=== PATIENT | female | born 1950 | race Caucasian/White ===

== ENCOUNTER 2017-11-29 16:55 | Emergency (ER) | payer OTHER ==
--- NOTE | 2017-11-29 18:50 | RAD REPORT ---
EXAM DESCRIPTION: RAD - Chest Pa And Lat (2 Views) - 11/29/2017 6:42 pm CLINICAL HISTORY: cough, chills Chest pain. COMPARISON: CHEST PA AND LAT 2 VIEW dated 09/03/2013 FINDINGS: The lungs are clear. The heart is normal in size. No displaced fractures. IMPRESSION: No acute or concerning finding suspected.
--- NOTE | 2017-11-29 18:56 | EDPHYS ---
Physician Documentation [facility] Name: Renae Ratliff Age: 67 yrs Sex: Female : 1950 Arrival Date: 11/29/2017 Time: 16:57 Bed 24 Private MD: Bob Cormier ED Physician Hesham Delgado HPI: 11/29 18:22 This 67 yrs old Female presents to ER via Ambulatory with complaints of jmm Congestion. 18:22 The patient or guardian reports cough. Onset: The symptoms/episode began/occurred jmm gradually, 6 day(s) ago. Associated signs and symptoms: Pertinent positives: sinus congestion. This is a 67 year old female that presents t the ED with cough, congestion, sinus congestion beginning approx 6 days ago. Patient also complains of chills and sob. . Historical: - Allergies: 17:05 No Known Allergies; aj - Home Meds: 17:05 pantoprazole oral oral [Active]; unknown cholesterol medication [Active]; aj - PMHx: 17:05 Hyperlipidemia; aj - PSHx: 17:05 Esophageal; aj - Immunization history:: Adult Immunizations up to date. - Social history:: Smoking status: Patient/guardian denies using tobacco. - Ebola Screening: : Patient negative for fever greater than or equal to 101.5 degrees Fahrenheit, and additional compatible Ebola Virus Disease symptoms Patient denies exposure to infectious person Patient denies travel to an Ebola-affected area in the 21 days before illness onset No symptoms or risks identified at this time. ROS: 18:22 Cardiovascular: Negative for chest pain, palpitations, and edema. jmm 18:22 Constitutional: Positive for body aches, chills. 18:22 ENT: Positive for sinus congestion. 18:22 Respiratory: Positive for cough. 18:22 All other systems are negative. Exam: 18:22 Head/Face: atraumatic. jmm 18:22 Chest/axilla: Normal chest wall appearance and motion. Cardiovascular: Regular rate and rhythm. No edema appreciated Respiratory: Normal respirations, no respiratory distress appreciated 18:22 Constitutional: The patient appears in no acute distress, alert, awake. 18:22 ENT: TM's: are normal, Posterior pharynx: is normal. 18:22 Neck: ROM/movement: is normal, is supple. 18:22 Cardiovascular: Rate: normal, Rhythm: regular, Pulses: no pulse deficits are appreciated. 18:22 Respiratory: the patient does not display signs of respiratory distress, Respirations: normal, Breath sounds: are clear throughout. 18:22 Abdomen/GI: Inspection: abdomen appears normal. 18:22 Back: ROM is normal. 18:22 Musculoskeletal/extremity: ROM: intact in all extremities. 18:22 Skin: Appearance: Color: normal in color. 18:22 Neuro: Orientation: is normal, Mentation: is normal, Memory: is normal, Gait: is steady. 18:22 Psych: Behavior/mood is pleasant, cooperative. Vital Signs: 17:05 BP 149 / 81; Pulse 89; Resp 17; Temp 98.1; Pulse Ox 98% on R/A; Weight 57.15 kg; Height aj 5 ft. 4 in. (162.56 cm); 19:08 BP 136 / 84; Pulse 76; Resp 18; Temp 98.6(O); Pulse Ox 100% on R/A; Pain 0/10; ed1 17:05 Body Mass Index 21.63 (57.15 kg, 162.56 cm) MDM: 18:16 Patient medically screened. [facility] 18:52 Data reviewed: vital signs, nurses notes. [facility] 18:54 Counseling: I had a detailed discussion with the patient and/or guardian regarding: the [facility] historical points, exam findings, and any diagnostic results supporting the discharge/admit diagnosis, the need for outpatient follow up, to return to the emergency department if symptoms worsen or persist or if there are any questions or concerns that arise at home. 11/29 17:06 Order name: Flu; Complete Time: 18:19 aj 11/29 18:22 Order name: Chest Pa And Lat (2 Views) XRAY; Complete Time: 18:51 [facility] Administered Medications: No medications were administered Disposition: 11/30 13:19 Co-signature as Attending Physician, eHsham Delgado MD I agree with the assessment and kdr plan of care. Disposition: 11/29/17 18:55 Discharged to Home. Impression: Acute bronchitis. - Condition is Stable. - Discharge Instructions: Acute Bronchitis, Adult. - Prescriptions for Prednisone 20 mg Oral Tablet - take 3 tablet by ORAL route once daily for 5 days; 15 tablet. Zithromax Z- Michael 250 mg Oral Tablet - take 1 tablet by ORAL route as directed for 5 days Day 1 - take two (2) tablets one time. Day 2, 3, 4 , 5 take one (1) tablet once daily.; 6 tablet. Albuterol Sulfate 90 mcg/actuation - inhale 1-2 puff by INHALATION route every 4-6 hours; 1 Inhaler. - Medication Reconciliation Form, Thank You Letter, Antibiotic Education, Prescription Opioid Use form. - Follow up: Bob Cormier MD; When: 2 - 3 days; Reason: Recheck today's complaints, Continuance of care, Re-evaluation by your physician. Signatures: Dispatcher [employer] EDMS Kate Smith RN RN aj Rittger, Kevin, MD MD kdr Mickail, Joel, PA PA jmm Riggs, Erika, UMBRELLA TIPPER HAND UMBRELLA TIPPER HAND ed1 Corrections: (The following items were deleted from the chart) 11/29 19:09 18:55 11/29/2017 18:55 Discharged to Home. Impression: Acute bronchitis. Condition is ed1 Stable. Forms are Medication Reconciliation Form, Thank You Letter, Antibiotic Education, Prescription Opioid Use. Follow up: Bob Cormier; When: 2 - 3 days; Reason: Recheck today's complaints, Continuance of care, Re-evaluation by your physician. steve
--- NOTE | 2017-11-29 18:56 | ER ---
Nurse's Notes [facility] Name: Renae Ratliff Age: 67 yrs Sex: Female : 1950 Arrival Date: 11/29/2017 Time: 16:57 Bed 24 Private MD: Bob Cormier Diagnosis: Acute bronchitis Presentation: 11/29 17:04 Presenting complaint: Patient states: Nasal congestion, cough, and chills for 6 days. aj Transition of care: patient was not received from another setting of care. Onset of symptoms was November 23, 2017. Risk Assessment: Do you want to hurt yourself or someone else? Patient reports no desire to harm self or others. Initial Sepsis Screen: Does the patient meet any 2 criteria? No. Patient's initial sepsis screen is negative. Does the patient have a suspected source of infection? No. Patient's initial sepsis screen is negative. Care prior to arrival: None. 17:04 Method Of Arrival: Ambulatory aj 17:04 Acuity: BREANNA 3 aj Triage Assessment: 17:05 General: Appears in no apparent distress. comfortable, Behavior is calm, cooperative, aj appropriate for age. EENT: Reports nasal congestion nasal discharge. Neuro: Level of Consciousness is awake, alert, obeys commands, Oriented to person, place, time, situation, Appropriate for age. Respiratory: Reports cough that is Airway is patent Respiratory effort is even, unlabored, Respiratory pattern is regular, symmetrical. Derm: Skin is intact, is healthy with good turgor, Skin is pink, warm \T\ dry. normal. Historical: - Allergies: 17:05 No Known Allergies; aj - Home Meds: 17:05 pantoprazole oral oral [Active]; unknown cholesterol medication [Active]; aj - PMHx: 17:05 Hyperlipidemia; aj - PSHx: 17:05 Esophageal; aj - Immunization history:: Adult Immunizations up to date. - Social history:: Smoking status: Patient/guardian denies using tobacco. - Ebola Screening: : Patient negative for fever greater than or equal to 101.5 degrees Fahrenheit, and additional compatible Ebola Virus Disease symptoms Patient denies exposure to infectious person Patient denies travel to an Ebola-affected area in the 21 days before illness onset No symptoms or risks identified at this time. Screenin:43 Abuse screen: Denies threats or abuse. Denies injuries from another. Nutritional ed1 screening: No deficits noted. Tuberculosis screening: No symptoms or risk factors identified. Fall Risk None identified. Assessment: 17:41 General: Appears in no apparent distress. Behavior is calm, cooperative. Pain: Denies ed1 pain. Neuro: Level of Consciousness is awake, alert, obeys commands, Oriented to person, place, time, situation. Cardiovascular: Denies chest pain, Heart tones S1 S2 present. Cardiovascular: Reports None Denies Rhythm is regular. Respiratory: Reports cough that is Airway is patent Respiratory effort is even, unlabored, Respiratory pattern is regular, symmetrical, Breath sounds are clear bilaterally. GI: Reports decreased appetite. : No signs and/or symptoms were reported regarding the genitourinary system. EENT: No signs and/or symptoms were reported regarding the EENT system. Derm: Skin is pink, warm \T\ dry. Musculoskeletal: Circulation, motion, and sensation intact. 17:45 General: The previous assessment is accurate, call light remains within reach. . ss 19:08 Reassessment: Patient appears in no apparent distress at this time. No changes from ed1 previously documented assessment. Patient and/or family updated on plan of care and expected duration. Pain level reassessed. Patient is alert, oriented x 3, equal unlabored respirations, skin warm/dry/pink. Patient denies pain at this time. Vital Signs: 17:05 BP 149 / 81; Pulse 89; Resp 17; Temp 98.1; Pulse Ox 98% on R/A; Weight 57.15 kg; Height aj 5 ft. 4 in. (162.56 cm); 19:08 BP 136 / 84; Pulse 76; Resp 18; Temp 98.6(O); Pulse Ox 100% on R/A; Pain 0/10; ed1 17:05 Body Mass Index 21.63 (57.15 kg, 162.56 cm) aj ED Course: 16:57 Patient arrived in ED. mr 16:59 Bob Cormier MD is Private Physician. mr 17:04 Triage completed. aj 17:05 Arm band placed on right wrist. Patient placed in an exam room. aj 17:33 Carla Dallas LVN is Primary Nurse. ed1 17:43 Awaiting ED provider evaluation. ed1 17:43 Patient has correct armband on for positive identification. Placed in gown. Bed in low ed1 position. Call light in reach. Warm blanket given. 17:54 Robert Mooney PA is PHCP. [facility] 17:54 Hesham Delgado MD is Attending Physician. jm 18:35 Patient moved to radiology via wheelchair. az 18:40 X-ray completed. Patient tolerated procedure well. az 18:41 Chest Pa And Lat (2 Views) XRAY In Process Unspecified. EDMS 18:55 Bob Cormier MD is Referral Physician. m 19:08 No provider procedures requiring assistance completed. Patient did not have IV access ed1 during this emergency room visit. Administered Medications: No medications were administered Outcome: 18:55 Discharge ordered by . [facility] 19:08 Discharged to home ambulatory. ed1 19:08 Condition: good 19:08 Discharge instructions given to patient, Instructed on discharge instructions, follow up and referral plans. medication usage, Demonstrated understanding of instructions, follow-up care, medications, Prescriptions given X 3. 19:09 Patient left the ED. ed1 Signatures: Dispatcher [employer] EDMS Kate Smith, RN RN Robert Holm PA PA jmm Rivera, Mary mr Smirch, Shelby, RN RN Carla Caraballo, COVER STITCH MACHINE OPERATOR COVER STITCH MACHINE OPERATOR ed1 Vicki Garcia mn
== END 2017-11-29 19:09 | disposition home or self-care (01) ==
LOC: ER 16:55
DX: J20.9 Acute bronchitis, unspecified (principal); E78.5 Hyperlipidemia, unspecified
CPT/HCPCS: 71046; 87804; 99283